=== PATIENT | female | born 1980 | race Asian ===

== ENCOUNTER 2024-06-26 14:42 | Emergency (ER) | payer SELFPAY ==
[2024-06-26 15:10] VITALS: BP 135/63
--- NOTE | 2024-06-26 15:15 | ED.GENMED ---
ED Provider Triage
<Shane Arango PA-C - Last Filed: 06/26/24 15:15>
-
Patient seen by provider in Triage?: Seen in Triage
43-year-old female presents complaining of midsternal and epigastric discomfort mainly worse after eating. She has been prescribed pantoprazole for GERD. She has been taking this the last 2 days. She also notes postprandial pain in the upper
abdomen after eating fried foods. No shortness of breath
Will initiate workup with EKG labs including troponin lipase. Will also order ultrasound of the abdomen
Patient seen by medical provider through triage but does warrant further assessment
History of Present Illness
<Shane Arango PA-C - Last Filed: 06/26/24 15:15>
General
Chief Complaint: Chest Pain
Time Seen by Provider: 06/26/24 19:50
<Elicia Brennan PA-C - Last Filed: 06/27/24 12:43>
General
Source: patient
Exam Limitations: none
History of Present Illness
History of Present Illness:
43yoF with a history of GERD presenting with her mother for evaluation of acid reflux. Patient has been having intermittent acid reflux flares for several years. Her PCP typically puts her on medications for 15-30 days but she is not on anything
consistently. Patient reports chest burning with a sour taste in her mouth. She feels like things get stuck after swallowing intermittently. Additionally, she gets a temporary pain in her RUQ after eating greasy foods. She was recently seen by
her PCP and was given a prescription for pantoprazole which she started 2 days ago. She actually has no symptoms today but she is unsure what to do. She states these medications given her side effects and she is not sure how long she should be
taking them. Patient has never seen a instrument assembler and has never had an endoscopy before.
Past History
<Shane Arango PA-C - Last Filed: 06/26/24 15:15>
Past History
ED Past Medical History: GERD, Psychiatric (Anxiety) and Other (Low back pain with sciatica for which she takes Flexeril as needed and meloxicam as needed)
ED Past Surgical History: Other
Social History
Tobacco: Non-smoker
Personal:
Living: with family
Phy Exam
<Elicia Brennan PA-C - Last Filed: 06/27/24 12:43>
General Physical Exam
General Presentation: well appearing and no apparent distress
General age: appears stated age
General Skin: warm and dry
General Habitus: normal
General Mental: alert
ENT Exam
ENT Exam: normocephalic
Cardiovascular Exam
Cardiovascular Exam: regular rate/rhythm and no murmur
Pulmonary Exam
Pulmonary Exam: lungs clear, no respiratory distress, no rales, no crackles and no rhonchi
Gastrointestinal Exam
Gastrointestinal Exam: non tender, soft and non distended
Neurological Exam
Neurological Exam: alert
[place] Coma Scale
Eye Opening: Spontaneous
Verbal Response: Oriented
Motor Response: Obeys Commands
GCS Total Score: 15
Skin Exam
Skin Exam: normal color and warm/dry
Psychiatric Exam
Psychiatric Exam: normal mood/affect
Scores
<Elicia Brennan PA-C - Last Filed: 06/27/24 12:43>
Heart Score for Chest Pain Patients
STEMI patient?: No
History: Slightly or Non-Suspicious
ECG: Normal
Age: </= 45 years
Risk Factors: No Risk Factors
Troponin: </= Normal Limit
Heart Score for Chest Pain Patients: 0
Heart Score Risk: 2.5% MACE over next 6 weeks
Course
<Shane Arango PA-C - Last Filed: 06/26/24 15:15>
Orders/Labs/Results
Orders:
Orders
06/26/24 14:45
EKG [Electrocardiogram (*1)] Urgent
Reason for Study: Chest Pain
EKG- Treatment ONCE
06/26/24 15:10
US Abdomen Complete/Upper Urgent
Comment:
Reason For Exam: upper abdominal pain
06/26/24 15:20
Complete Blood Count/With Diff Urgent
Comprehensive Metabolic Panel Urgent
Lipase Urgent
Troponin I Urgent
Abnormal Lab Results
06/26/24
15:20
MCH 31.6 H pg
(27.0-31.0)
BUN 5 L mg/dl
(7-17)
Alkaline Phosphatase 35 L U/L
(38-126)
06/26/24 15:20
06/26/24 15:20
Vital Signs
Initial and Last Documented VS:
Initial Vital Signs
Temp Pulse Resp BP Pulse Ox
98.2 F 95 16 135/63 100
06/26/24 15:10 06/26/24 15:10 06/26/24 15:10 06/26/24 15:10 06/26/24 15:10
Last Documented Vital Signs
Temp Pulse Resp BP Pulse Ox
98.2 F 69 18 148/93 99
06/26/24 15:10 06/26/24 20:45 06/26/24 20:45 06/26/24 20:45 06/26/24 20:45
<Elicia Brennan PA-C - Last Filed: 06/27/24 12:43>
Orders/Labs/Results
Orders:
Orders
06/26/24 14:45
EKG [Electrocardiogram (*1)] Urgent
Reason for Study: Chest Pain
EKG- Treatment ONCE
06/26/24 15:10
US Abdomen Complete/Upper Urgent
Comment:
Reason For Exam: upper abdominal pain
06/26/24 15:20
Complete Blood Count/With Diff Urgent
Comprehensive Metabolic Panel Urgent
Lipase Urgent
Troponin I Urgent
Abnormal Lab Results
06/26/24
15:20
MCH 31.6 H pg
(27.0-31.0)
BUN 5 L mg/dl
(7-17)
Alkaline Phosphatase 35 L U/L
(38-126)
06/26/24 15:20
06/26/24 15:20
Vital Signs
Initial and Last Documented VS:
Initial Vital Signs
Temp Pulse Resp BP Pulse Ox
98.2 F 95 16 135/63 100
06/26/24 15:10 06/26/24 15:10 06/26/24 15:10 06/26/24 15:10 06/26/24 15:10
Last Documented Vital Signs
Temp Pulse Resp BP Pulse Ox
98.2 F 69 18 148/93 99
06/26/24 15:10 06/26/24 20:45 06/26/24 20:45 06/26/24 20:45 06/26/24 20:45
Hunglt;Elicia Brennan PA-C - Last Filed: 06/27/24 12:43>
MDM/Problems Addressed
Differential Diagnosis Includes:
43yoF here with GERD. C/o burning chest pain after eating with associated sour taste in mouth. Intermittent episodes x years. Recently started on Protonix and not actually having any symptoms today. Here in the ED mainly to figure out what to do
with her medications. VSS. She is well appearing in no distress. Exam is reassuring. Differential diagnosis includes but is not limited to: GERD, gastritis, PUD, biliary colic, less likely ACS
Workup obtained in triage. Labs unremarkable including white count, lipase, LFTs, renal function. EKG shows NSR without ischemic changes and troponin WNL. Abdominal ultrasound shows trace GB sludge without cholelithiasis or cholecystitis. No
indication for further workup at this time. Patient started on pantoprazole 40mg QD by her PCP and she was advised to continue this. Advised Pepcid 20mg BID PRN. Will refer to GI for f/u. ED return precautions discussed. She was discharged in stable
condition.
<Elicia Brennan PA-C - Last Filed: 06/27/24 12:43>
*EKG
Interpreted by ED Provider?: Yes
EKG Intrepretation Date: 06/26/24
Heart Rate: 73
Rate: normal
Rhythm: sinus
[place]: normal axis
Interval: normal interval
QRS Pattern: normal QRS
Ischemia: no ischemia
*Critical Care Note
Total Time (30-74mins, 75-104mins- exclusive of procedures): Not Applicable
ED Attending Note
<Shane Arango PA-C - Last Filed: 06/26/24 15:15>
-
Portions of this chart may have been created with voice recognition software.� Occasional wrong word or��sound alike� substitutions may have occurred due to the inherent limitations of voice recognition software.
Discharge Plan
Departure
Patient Disposition: Home (Routine Discharge)
Date of Disposition: 06/26/24
Time of Disposition: 20:31
Patient with high blood pressure during this ER visit?: No
Discharge Problem:
GERD (gastroesophageal reflux disease)
Instructions: Acid Reflux and GERD in Adults (DC)
Prescriptions:
No Action
doxycycline hyclate 100 MG capsule
100 mg PO BID Qty: 14 0RF
Referrals:
Mike Ma MD [Active] -
Activity Restrictions/Additional Instructions:
Take pantoprazole consistently. Take Pepcid 20mg twice a day as needed.
Please call tomorrow to schedule a follow-up with gastroenterology. Return to the ER with any new or worsening symptoms.
Interventions
Interventions:
*Risk Screen - Suicide Last Done: 06/26/24 15:12
*General Assessment Last Done: 06/26/24 20:47
*Neglect/Abuse Screening Last Done: 06/26/24 15:12
ED- Fall Risk Assessment Last Done: 06/26/24 20:47
*ED COVID-19 Vaccine History Last Done: 06/26/24 20:47
*Nursing Disposition Last Done: 06/26/24 20:47
ED- Cardiac Assessment Last Done: 06/26/24 19:30
Discharge Date and Time
Discharge Date/Time: 06/26/24 20:53
Print Language: TURKISH
[2024-06-26 15:38] LABS: % Basophils 0.5 % (0-2); % Eosinophils 0.2 % (0-6); % Immature Granulocytes 0.2 % (0-0.5); % Lymphocytes 25.8 % (20.5-51.1); % Monocytes 4.9 % (1.7-9.3); % Neutrophils 68.4 % (42.2-75.2); Absolute Lymphocytes 2.1 10^3/uL (1.2-3.4); Absolute Monocytes 0.4 10^3/uL (0.1-0.6); Absolute Neutrophils 5.7 10^3/uL (1.4-6.5); Hematocrit 41.1 % (37.0-47.0); Hemoglobin 14.4 g/dL (12.0-16.0); Mean Corpuscular Hgb 31.6 pg (27.0-31.0); Mean Corpuscular Volume 90.1 fL (81.0-99.0); Mean Platelet Volume 8.9 fL (7.4-10.4); Nucleated Red Blood Cells % 0 %; Platelet Count 333 10^3/uL (130-400); Red Blood Cell Count 4.56 10^6/uL (4.20-5.40); Red Cell Dist. Width 12.2 % (11.5-14.5); White Blood Cell Count 8.3 10^3/uL (4.8-10.8)
[2024-06-26 15:52] LABS: ALT (SGPT) 22 U/L (0-35); AST (SGOT) 28 U/L (14-36); Albumin 4.8 g/dl (3.5-5.0); Alkaline Phosphatase 35 U/L (38-126); Blood Urea Nitrogen 5 mg/dl (7-17); Calcium 9.9 mg/dl (8.4-10.2); Carbon Dioxide 25 mmol/L (22-30); Chloride 104 mmol/L (98-107); Glucose 93 mg/dl (70-99); Lipase 152 U/L (23-300); Potassium 3.9 mmol/L (3.5-5.1); Sodium 137 mmol/L (135-145); Total Protein 7.5 g/dl (6.3-8.2); eGFR > 60.00
[2024-06-26 16:04] LABS: Troponin I < 0.012 ng/ml
[2024-06-26 20:45] VITALS: BP 148/93
== END 2024-06-26 20:53 | disposition home or self-care (01) ==
LOC: EMR 14:42
PROVIDERS: Physician Assistant; EMERGENCY PHYSICIAN Student in an Organized Health Care Education/Training Program
DX: K21.9 Gastro-esophageal reflux disease without esophagitis (principal); F41.9 Anxiety disorder, unspecified
CPT/HCPCS: 99284; 76700; 80053; 83690; 84484; 85025; 93005